=== PATIENT | female | born 1945 | race Caucasian/White ===

== ENCOUNTER → 2016-04-10 | Outpatient (CLI) | payer MEDICARE, BC ==
--- NOTE | 2016-04-03 19:41 | MH ---
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 HISTORY OF PRESENT ILLNESS This 70-year-old white female is coming through [facility] for the purpose of a laser peripheral iridectomy of the left eye. She was found to have narrow anterior chamber angles with potential angle closure on comprehensive exam. She therefore has elected to proceed with a laser peripheral iridectomy of the left eye at this time through the [facility]. PAST MEDICAL HISTORY The patient has a history of hypertension. Denies other medical illness. PAST SURGICAL HISTORY Includes: 1. Hysterectomy. 2. Cyst removed on the right breast. 3. Back surgery at L3 and L4. 4. 80% of the colon being removed. 5. And a growth on the sciatic nerve and a ligament of the left leg. MEDICATIONS Daily medications include: 1. Estradiol. 2. Lisinopril. 3. Hydrochlorothiazide. 4. Pantoprazole. ALLERGIES NO KNOWN ALLERGIES SOCIAL HISTORY Noncontributory. FAMILY HISTORY Positive for a sister with cataract. REVIEW OF SYSTEMS Noncontributory. OCULAR EXAMINATION On ocular exam the patient's best corrected visual acuity is 20/20 -3 in the right eye and 20/20 -2 in the left. Visual victor are full to confrontation testing. Extraocular muscle exam reveals full versions with orthophoria at distance and exophoria at near. Pupils are 3 mm equal, round, reactive to light without afferent defect. Anterior segment examination reveals narrow anterior chamber angles with potential angle closure on gonioscopy. There are minimal cataract changes bilaterally in each eye. Intraocular pressures 14 in the right eye and 16 in the left by applanation tonometry. Dilated fundus exam revealed sharp disks with cup-to-disk ratio 0.3 bilaterally. The macula is clear bilaterally. A posterior vitreous detachment is present bilaterally with vitreous floater in the right eye. IMPRESSION 1. Narrow anterior chamber angles with potential angle closure. Posterior vitreous detachment both eyes with vitreous floater right eye. PLAN Laser peripheral iridectomy of the left eye with intraocular lens implant under topical anesthesia through [facility]. Raymond Cedeno MD DOCUMENT REVIEW SPECIALIST/DANELLE /5:33 PM /7:30 PM
[~2016-04-10] MED LIST: BALANCED SALT SOLN OPHT IRRIG 15 ML BTL ONE; ESTR1 PO; ESTR1TAB PO; LISI-586 PO; LISI20TA PO; LYRI75CA PO; PANT40TA3 PO; PILOCARPINE HCL 2% OPHT SOLN 15 ML BTL ONE; PREG75 PO; PROPARACAINE HCL 0.5% OPHT SOLN 15 ML BTL ONE; PROT40TA PO; prednisoLONE ACETATE 1% OPHT SUSP 5 ML BTL ONE
--- NOTE | 2016-04-12 23:30 | MP ---
cc: RAYMOND CEDENO DATE OF SURGERY: 04/10/2016 PREOPERATIVE DIAGNOSIS: Narrow anterior chamber angle, left eye. POSTOPERATIVE DIAGNOSIS: Narrow anterior chamber angle, left eye. OPERATION: Laser peripheral iridectomy, left eye. ANESTHESIA: Topical. COMPLICATIONS: None. INDICATIONS FOR PROCEDURE: See History and Physical previously dictated. PROCEDURE: The patient arrived at [facility]. Blood pressure was 157/78, pulse 59, respirations 16. A drop of Alphagan P and 2% Pilocarpine were instilled in the left eye. A drop of Ophthaine was instilled in the left eye and a laser iridectomy lens was placed on the anterior surface of the left cornea. Peripheral iridectomy was carried out utilizing the following procedure: First phase: Argon laser was first utilized forming a crater in the iris. Ten exposures of 400 milliwatts were used with a spot size of 200 microns for 0.2 seconds exposure time. Second phase: Argon laser, 38 exposures of 950 milliwatts of power were used with the spot size of 50 microns, 0.1 second exposure time. Following this, YAG laser was utilized to complete the iridectomy, 9 exposures of 1.6 to 3.7 millijoules were utilized by the YAG laser to complete the iridectomy. An adequate opening was seen at this time. The iridectomy lens was removed and the eye was irrigated. A drop of Alphagan P was instilled. The patient was given a prescription for Pred Forte to be utilized four times a day, and has an appointment for follow-up on the first postoperative day in my office. The patient left the [facility] in satisfactory condition. Raymond Cedeno MD BREAD ICER/JUNIOR /12:42 PM /11:14 PM .2
== END ==
LOC: CSDC 11:21
PROVIDERS: ATTEND Ophthalmology
DX: H40.032 Anatomical narrow angle, left eye (principal)

== ENCOUNTER → 2016-05-22 | Outpatient (CLI) | payer MEDICARE, BC ==
--- NOTE | 2016-05-05 14:45 | MH ---
cc: [facility], RAYMOND DIAZ DATE OF ADMISSION: 05/22/2016 ADMISSION DIAGNOSIS Narrow anterior chamber angle with potential angle closure, right eye. HISTORY OF PRESENT ILLNESS This 71-year-old white female is coming through [facility] for the purpose of a laser peripheral iridectomy of the right eye. She was found to have narrow anterior chamber angles with potential angle closure on comprehensive exam and has undergone a laser peripheral iridectomy in the left eye in March and is now coming through [facility] for a similar procedure in the right eye. PAST MEDICAL HISTORY Hypertension. PAST SURGICAL HISTORY 1. Hysterectomy. 2. Cyst removed from the right breast. 3. Back surgery L3 and L4. 4. 80% of the colon being removed. 5. Growth on sciatic nerve and ligament of the left leg. MEDICATIONS The daily medications include: 1. Estradiol. 2. Lisinopril. 3. Hydrochlorothiazide. 4. Pantoprazole. ALLERGIES No known allergies. SOCIAL HISTORY Noncontributory. FAMILY HISTORY Positive for sister with cataract. REVIEW OF SYSTEMS Noncontributory. OCULAR EXAM On ocular exam the patient's visual acuity with best correction was 20/20 -3 in the right eye and 20/25 in the left. Visual victor are full to confrontation testing. Extraocular muscle exam reveals full versions with orthophoria in the distance and exophoria at near. Pupils are 3 mm, equal, round, reactive to light without afferent defect. Anterior segment examination reveals dermatochalasis of the eyelid skin. She has a patent peripheral iridectomy in the left eye and narrow anterior chamber angle in the right eye on gonioscopy with potential angle closure. There are minimal nuclear sclerotic cataract changes in each eye. Intraocular pressures is 14 in the right eye and 21 in the left eye by applanation tonometry. Dilated fundus exam revealed sharp disks with cup-to-disk ratio 0.3 bilaterally. The macula was clear and a posterior vitreous detachment was present bilaterally with floater in the right eye. IMPRESSION 1. Narrow anterior chamber angle with potential angle closure right eye. 2. Status post laser peripheral iridectomy, left eye. 3. Posterior vitreous detachment both eyes. PLAN Laser peripheral iridectomy of the right eye through [facility]. MD CHENG Bashir /2:21 PM /2:38 PM
[~2016-05-22] MED LIST changes: -BALANCED SALT SOLN OPHT IRRIG 15 ML BTL ONE; -ESTR1 PO; -LISI-586 PO; -PREG75 PO; -PROT40TA PO
--- NOTE | 2016-05-22 14:07 | MP ---
cc: RAYMOND DIAZ M.D. DATE OF SURGERY: 05/22/2016 PREOPERATIVE DIAGNOSIS Narrow anterior chamber angle, right eye. POSTOPERATIVE DIAGNOSIS Narrow anterior chamber angle, right eye. OPERATION Laser peripheral iridectomy, right eye. ANESTHESIA Topical. COMPLICATIONS None. INDICATIONS FOR PROCEDURE See History and Physical previously dictated. PROCEDURE The patient arrived at [facility]. Blood pressure was 164/91, pulse 65, respirations 16. A drop of Alphagan P and 2% Pilocarpine were instilled in the right eye. A drop of Ophthaine was instilled in the right eye and a laser iridectomy lens was placed on the anterior surface of the right cornea. Peripheral iridectomy was carried out utilizing the following procedure: Argon laser was first utilized forming a crater in the iris. 16 exposures of 400 milliwatts were used with a spot size of 200 microns for 0.2 seconds exposure time and 400 milliwatts of power and Argon laser number of exposures was 19 of 50 micron spot size 0.1 seconds exposure time and 950 milliwatts of power. Following this, YAG laser was utilized to complete the iridectomy. 7 exposures with 3.9 millijoules of power utilized by the YAG laser to complete the iridectomy. An adequate opening was seen at this time. The iridectomy lens was removed and the eye was irrigated. A drop of Alphagan P was instilled. The patient was given a prescription for Pred Forte to be utilized four times a day, and has an appointment for follow-up on the first postoperative day in my office. The patient left the [facility] in satisfactory condition. MD LISE Bashir/FAREEDL /1:15 PM /1:58 PM .4
== END ==
LOC: PHSDC 10:58
PROVIDERS: ATTEND Ophthalmology
DX: H40.031 Anatomical narrow angle, right eye (principal); I10 Essential (primary) hypertension